=== PATIENT | female | born 1965 | race Caucasian/White ===

== ENCOUNTER 2020-08-30 13:46 | Outpatient (RCR) | payer SELFPAY ==
[2020-08-30 10:17] VITALS: BP 127/72; PULSE 88; TEMP 36.2
--- NOTE | 2020-08-30 11:54 | PCM.WC.HP ---
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 She cleaned it and was taking care of it but it seemed to be getting worse with redness and swelling went to urgent care they refused to see her and sent her to the emergency room. The emergency room doctor wanted to admit her but she has no insurance he put her on Bactrim and sent her home. Patient has been soaking with Dakin's 3 times a day and applying Neosporin and dressings over top. Progress of Wound: Swollen the wound itself is more superficial but full of slough webbing between her fourth and fifth toe is macerated. Today three quarters of the foot is red and warm to touch Will start her on metronidazole repeat cultures and continue the Bactrim DS till we get the culture results back we will get patient off work for a couple of days until . Patient is to wear Chralie wrap and elevate as much as possible ROS Constitutional Constitutional: Reports systems reviewed and no addt'l complaints, except as documented Eyes Eyes: Reports systems reviewed and no addt'l complaints, except as documented ENT HEENT: Reports systems reviewed and no addt'l complaints, except as documented Cardiovascular Cardiovascular: Reports systems reviewed and no addt'l complaints, except as documented Respiratory/Chest Respiratory/Chest: Reports systems reviewed and no addt'l complaints, except as documented Gastrointestinal Gastrointestinal: Reports systems reviewed and no addt'l complaints, except as documented Genitourinary Genitourinary: Reports systems reviewed and no addt'l complaints, except as documented Musculoskeletal Musculoskeletal: Reports systems reviewed and no addt'l complaints, except as documented Integumentary Integumentary: Reports systems reviewed and no addt'l complaints, except as documented and as per HPI Neurologic Neurologic: Reports systems reviewed and no addt'l complaints, except as documented Psychiatric Psychiatric: Reports systems reviewed and no addt'l complaints, except as documented Endocrine Endocrinology: Reports systems reviewed and no addt'l complaints, except as documented Hematologic/Lymphatic Hematologic/Lymphatic: Reports systems reviewed and no addt'l complaints, except as documented Allergic/Immunologic Allergic/Immunologic: Reports systems reviewed and no addt'l complaints, except as documented Vital Signs Vital Signs Vital Signs: 08/30/20 10:17 Temperature 97.1 F L Temperature Source Temporal Pulse Rate 88 Blood Pressure 127/72 H Blood Pressure Mean 90 Blood Pressure Source Monitor Blood Pressure Position Semi-Fowlers Blood Pressure Location Right Arm Physical Exam Const oriented x3 General Appearance: cooperative Exam Limitations: no limitations HEENT normocephalic Head and Scalp: normal to inspection Face and Sinus: normal facial exam Nose: external nose normal General Ear: hearing grossly impaired External Ear: external ears normal Mouth: oral and palatal mucosa normal Eyes PERRL General Eye: normal appearance of both eyes Neck full ROM General: normal visual inspection Resp normal respiratory effort Effort and Inspection: able to speak in complete sentences Auscultation: clear to auscultation bilaterally Cardio regular rate and regular rhythm Palpation: normal PMI Rate: regular rate Rhythm: regular rhythm GI Auscultation: normoactive bowel sounds Palpation: soft and no hepatosplenomegaly external exam normal Back/Spine Cervical Spine: cervical ROM normal Thoracic Spine / Upper Back: normal to inspection Lumbar Spine / Lower Back: normal to inspection Extremity normal to inspection General Extremity: normal exam except as noted Skin Rashes: rashes noted Wounds: wounds noted Neuro oriented x3 Psych Appearance: grossly normal Speech: normal speech Thought Content: normal thought content Judgement: judgement good Debridement Note Debridement Note Post-Debridement Measurements and Additional Note: Post-Debridement Measurements/Treatment - Nurse 1 - General Ulcer Assessment Start: 08/30/20 10:17 Freq: Status: Active Protocol: [email or web address].[email or web address] Activity Type Activity Date Activity User E-Sign Co-Sign Detail Recorded Client Recorded Date Recorded By Document 08/30/20 10:17 YUN [id number] 08/30/20 10:38 YUN 08/30/20 10:17 - Today's Visit Information Type of service Initial Visit Arrival Mode Ambulatory Patient Identification Verified (Name & Yes ) Vital Signs Temperature (97.8 F-99.1 F) 97.1 F L Temperature Source Temporal Pulse Rate (60-100) 88 Pulse Location Monitor Blood Pressure (90/60-120/80) 127/72 H Blood Pressure Mean 90 Source Monitor Position Semi-Fowlers Blood Pressure Location Right Arm History Since Last Visit- (Skip if this is Patient's initial visit) Have you changed medications since your No last visit? Any new allergies or adverse reactions No Had a fall/change in ADL's that may No increase risk of falls Signs or symptoms of abuse and/or No neglect since last visit Have you been in the hospital since your No last visit? Has dressing in place as prescribed No Has compression in place as prescribed N/A Has offloadiing in place as prescribed N/A Experienced any changes in pain level or No management Left Footwear Regular Shoe Right Footwear Regular Shoe Pain Scale: 0-10 Numeric Is Patient Pain Free? Yes - Nurse 1 - General Ulcer Measurement Start: 08/30/20 10:17 Freq: Status: Active Protocol: Activity Type Activity Date Activity User E-Sign Co-Sign Detail Recorded Client Recorded Date Recorded By Document 08/30/20 10:17 KR [id number] 08/30/20 10:38 KR 08/30/20 10:17 Wound Center Nurse 1 #1 Left Anterior foot -Current Size (cm) - Length 1.7 -Current Size (cm) - Width 1.5 -Current Size (cm) - Depth 0.2 -Total Square Cm 2.55 -Exudate Amt Large -Exudate Type Yellow/Green -Wound Margin Distinct, Outline Attached -Granulation Amt Small (1-33%) -Granulation Quality Red -Necrosis Amt Large (67-100%) -Necrotic Tissue Type Adherent Slough -Texture (Shweta-wound Skin Appearance) Assessed, Localized Edema ,Scarring -Moisture (Shweta-wound Skin Appearance) Assessed, Maceration -Color (Shweta-wound Skin Appearance) No Abnormality, Assessed -Temperature (Shweta-wound Skin Hot Appearance) -Tenderness on Palpation (Shweta-wound Yes Skin Appearance) -Ulcer Cleansing Rinsed/ Irrigated with Saline -Foul Odor after Cleansing No -Anesthetic Used 4% Lidocaine Solution,5% Lidocaine Gel Right Calf (cm) 45 Right Ankle (cm) 25 Left Calf (cm) 46 Left Ankle (cm) 27 WC - Nurse 2 - General Ulcer CM Notes Start: 08/30/20 10:17 Freq: Status: Active Protocol: Activity Type Activity Date Activity User E-Sign Co-Sign Detail Recorded Client Recorded Date Recorded By Document 08/30/20 11:07 MW [id number] 08/30/20 11:18 MW 08/30/20 11:07 Wound Center Nurse 2 #1 Left Anterior foot -Time 11:08 -Correct Patient Yes -Correct Side, Site, Position Yes -Correct Procedure Yes -Procedure Performed Yes -Type of Procedure Debridement -Clinical Debridement Subcutaneous -Tissue Removed Subcutaneous -Post Debridement (cm) - Length 3.0 -Post Debridement (cm) - Width 2.0 -Post Debridement (cm) - Depth 0.2 -Total Square (Post) (cm) 6.00 -Area of Debridement (cm) - Length 3.0 -Area of Debridement (cm) - Width 2.0 -Total Square (Area) (cm) 6.00 -Tunneling No -Undermining/Tunneling No -Circular Undermining No -Wound/Ulcer Outcome Not Healed -Ulcer Cleansing Rinsed/ Irrigated with Saline -Foul Odor after Cleansing No -Bioengineered Tissue No -Bleeding Controlled with Pressure -Offloading No -Treatment Response Procedure Tolerated Well -Debridement - Subq, 1st 20sq cm Yes Pain Scale: 0-10 Numeric Is Patient Pain Free? Yes - Nurse 3 - General Ulcer D/C NN Start: 08/30/20 10:17 Freq: Status: Active Protocol: Activity Type Activity Date Activity User E-Sign Co-Sign Detail Recorded Client Recorded Date Recorded By Document 08/30/20 11:32 [facility] [id number] 08/30/20 11:33 [facility] 08/30/20 11:32 Wound Care Nurse 3 #1 Left Anterior foot -Ulcer Cleansing Rinsed/ Irrigated with Saline -Foul Odor after Cleansing No -Primary Dressing Applied Aquacel AG 4x4, NonAdherent Contact Layer -Primary Dressing Covered/Secured with Dry Gauze & Roll Gauze, Secured with Tape,Other -Other Covering abd -Aquacel AG 4x4 1 Left -Compression Wrap Charlie Wrap Treatment Response Procedure Tolerated Well Pain Scale: 0-10 Numeric Is Patient Pain Free? Yes WC - Visit Discharge Discharge Condition Stable Ambulatory Status Ambulatory Transportation Private Auto Accompanied by matheus Wound debrided: Left dorsal foot wound Type of Debridement: Excisional debridement Anesthesia Used: 5% Lidocaine Gel Depth: Down to and including healthy tissue Percentage of wound debrided: 100 Instrument Used: 3mm curette Tissue Removed: Slough Severity: Limited To Skin Breakdown Amount of bleeding with debridement: Mild Bleeding Controlled with: Pressure Patient tolerated procedure: Patient tolerated procedure well Medical Records Data Attestation: I reviewed the patient's medical records Lab / Micro Data Attestation: I reviewed the patient's lab results. Assessment/Plan Assessment/Plan (1) Open wound of foot: CODE(S): S91.309A - Unspecified open wound, unspecified foot, initial encounter QUALIFIERS: Encounter type: initial encounter Laterality: left Qualified Code(s): S91.302A - Unspecified open wound, left foot, initial encounter PLAN: Wash foot with antibacterial soap apply Aquacel extra moistened Adaptic gauze and Cecilio Dressings will be done every day follow-up in 1 week (2) Cellulitis and abscess of foot, except toes: CODE(S): L03.119 - Cellulitis of unspecified part of limb; L02.619 - Cutaneous abscess of unspecified foot PLAN: Continue antibiotic therapy and will call with results of cultures obtained for aerobic and anaerobes (3) Edema of left lower leg: CODE(S): R60.0 - Localized edema PLAN: Charlie wrap 4 inch to foot and 6 inch to leg to knee every day
== END 2020-09-04 23:59 | disposition home or self-care (01) ==
LOC: WC 13:46
PROVIDERS: Visit Provider Nurse Practitioner
DX: S91.302A Unspecified open wound, left foot, initial encounter (principal); L03.119 Cellulitis of unspecified part of limb; R60.0 Localized edema; L02.619 Cutaneous abscess of unspecified foot
CPT/HCPCS: 11042; 87070; 87075; 87205; 99203; G0463

== ENCOUNTER 2020-09-13 08:45 | Outpatient (RCR) | payer SELFPAY ==
[2020-09-05 00:46] VITALS: BP 127/72; PULSE 88; TEMP 36.2
[2020-09-06 08:28] VITALS: BP 140/81; PULSE 83; RESP 18; TEMP 36.4
--- NOTE | 2020-09-06 11:25 | PN.PCM_ITS ---
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 She cleaned it and was taking care of it but it seemed to be getting worse with redness and swelling went to urgent care they refused to see her and sent her to the emergency room. The emergency room doctor wanted to admit her but she has no insurance he put her on Bactrim and sent her home. Patient has been soaking with Dakin's 3 times a day and applying Neosporin and dressings over top. Subjective Subjective She states its better and less painful.She states had a terrible reaction to the Flagyl and broke out in spots that itched all over her josé manuel but her face and breasts.Told to stop immediately. Objective Data Objective Data The wound itself is smaller less depth and less redness and swelling of he foot only the little toe is effected the most. Vital Signs: Vital Signs Temp Pulse Resp BP 97.6 F L 83 18 140/81 H 09/06/20 08:28 09/06/20 08:28 09/06/20 08:28 09/06/20 08:28 Lab / Micro Data Micro: neg on the cultures Physical Exam Const oriented x3 General Appearance: cooperative Exam Limitations: no limitations Resp normal respiratory effort and normal air movement Cardio regular rate and regular rhythm Extremity normal to inspection General Extremity: normal exam except as noted Skin no rashes or lesions noted Neuro oriented x3 Debridement Note Debridement Note Post-Debridement Measurements and Additional Note: Post-Debridement Measurements/Treatment - Nurse 1 - General Ulcer Assessment Start: 09/06/20 08:25 Freq: Status: Active Protocol: WC.LOWEXT Activity Type Activity Date Activity User E-Sign Co-Sign Detail Recorded Client Recorded Date Recorded By Document 09/06/20 08:28 ERIS [id number] 09/06/20 08:36 PL 09/06/20 08:28 - Today's Visit Information Type of service 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 Any new allergies or adverse reactions No Had a fall/change in ADL's that may No increase risk of falls Signs or symptoms of abuse and/or No neglect since last visit Have you been in the hospital since your No last visit? Has dressing in place as prescribed Yes Has compression in place as prescribed N/A Has offloadiing in place as prescribed N/A Experienced any changes in pain level or No management Pain Scale: 0-10 Numeric Is Patient Pain Free? No WC - Nurse 1 - General Ulcer Measurement Start: 09/06/20 08:25 Freq: Status: Active Protocol: Activity Type Activity Date Activity User E-Sign Co-Sign Detail Recorded Client Recorded Date Recorded By Document 09/06/20 08:28 PL [id number] 09/06/20 08:36 PL 09/06/20 08:28 Wound Center Nurse 1 #1 Left Anterior foot -Combined with other wound No -Current Size (cm) - Length 1.5 -Current Size (cm) - Width 1.0 -Current Size (cm) - Depth 0.2 -Total Square Cm 1.50 -Photo Taken No -Epithelialization None Present -Tunneling No -Undermining/Tunneling No -Circular Undermining No -Exudate Amt Medium -Exudate Type Serosanguineous -Granulation Amt Medium (34-66%) -Granulation Quality [place] -Slough/Fibrin Yes -Necrosis Amt Medium (34-66%) -Necrotic Tissue Type Adherent Slough -Ulcer Cleansing Rinsed/ Irrigated with Saline -Foul Odor after Cleansing No -Anesthetic Used 5% Lidocaine Gel WC - Nurse 2 - General Ulcer CM Notes Start: 09/06/20 08:25 Freq: Status: Active Protocol: Activity Type Activity Date Activity User E-Sign Co-Sign Detail Recorded Client Recorded Date Recorded By Document 09/06/20 09:10 MW [id number] 09/06/20 09:13 MW 09/06/20 09:10 Wound Center Nurse 2 -Time 09:10 -Correct Patient Yes -Correct Side, Site, Position Yes -Correct Procedure Yes -Procedure Performed Yes -Type of Procedure Debridement -Clinical Debridement Subcutaneous -Tissue Removed Subcutaneous -Post Debridement (cm) - Length 1.5 -Post Debridement (cm) - Width 0.8 -Post Debridement (cm) - Depth 0.2 -Total Square (Post) (cm) 1.20 -Area of Debridement (cm) - Length 1.5 -Area of Debridement (cm) - Width 0.8 -Total Square (Area) (cm) 1.20 -Tunneling No -Undermining/Tunneling No -Circular Undermining No -Wound/Ulcer Outcome Not Healed -Ulcer Cleansing Rinsed/ Irrigated with Saline -Foul Odor after Cleansing No -Bioengineered Tissue No -Bleeding Controlled with Pressure -Offloading No -Treatment Response Procedure Tolerated Well -Debridement - Subq, 1st 20sq cm Yes Pain Scale: 0-10 Numeric Is Patient Pain Free? Yes - Nurse 3 - General Ulcer D/C NN Start: 09/06/20 08:25 Freq: Status: Active Protocol: Activity Type Activity Date Activity User E-Sign Co-Sign Detail Recorded Client Recorded Date Recorded By Document 09/06/20 10:18 ERIS [id number] 09/06/20 10:19 ERIS 09/06/20 10:18 Wound Care Nurse 3 #1 Left Anterior foot -Ulcer Cleansing Rinsed/ Irrigated with Saline -Foul Odor after Cleansing No -Primary Dressing Applied Promogran -Primary Dressing Covered/Secured with Dry Gauze & Roll Gauze, Secured with Tape -Promogran 1 Pain Scale: 0-10 Numeric Is Patient Pain Free? Yes - Visit Discharge Discharge Condition Stable Ambulatory Status Ambulatory Clinical Summary of Care Provided Yes Wound debrided: L dorsal foot near L little toe Laterality: Left Type of Debridement: Excisional debridement Anesthesia Used: 5% Lidocaine Gel Depth: Down to and including healthy tissue Percentage of wound debrided: 100 Instrument Used: 5mm curette Tissue Removed: fibrin devitalized tissue Severity: Fat Layer Exposed Amount of bleeding with debridement: Mild Bleeding Controlled with: Pressure Patient tolerated procedure: Patient tolerated procedure well Assessment/Plan Assessment/Plan (1) Edema of left lower leg: CODE(S): R60.0 - Localized edema PLAN: continue the salvatore wrap to the foot and leg (2) Cellulitis and abscess of foot, except toes: CODE(S): L03.119 - Cellulitis of unspecified part of limb; L02.619 - Cutaneous abscess of unspecified foot PLAN: change dressing change to Promogran and adaptic then gauze and salvatore wrap every day elevate as much as possible (3) Open wound of foot: CODE(S): S91.309A - Unspecified open wound, unspecified foot, initial encounter QUALIFIERS: Encounter type: initial encounter Laterality: left Qualified Code(s): S91.302A - Unspecified open wound, left foot, initial encounter PLAN: same as above
[2020-09-13 08:48] VITALS: BP 151/81; PULSE 79; TEMP 36.9
--- NOTE | 2020-09-13 12:31 | PCM.WC.PN ---
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 She cleaned it and was taking care of it but it seemed to be getting worse with redness and swelling went to urgent care they refused to see her and sent her to the emergency room. The emergency room doctor wanted to admit her but she has no insurance he put her on Bactrim and sent her home. Patient has been soaking with Dakin's 3 times a day and applying Neosporin and dressings over top. Subjective Subjective wound looks good Objective Data Objective Data The wound is practically healed just a area smaller than an eraser head of an area superficial She has a outline of redness wheare the salvatore wrap is on her L leg . Suggested a cotton slip under the salvatore to stop the reaction Vital Signs: Vital Signs Temp Pulse Resp BP 98.4 F 79 18 151/81 H 09/13/20 08:48 09/13/20 08:48 09/06/20 08:28 09/13/20 08:48 Physical Exam Const oriented x3 General Appearance: cooperative Exam Limitations: no limitations HEENT normocephalic Head and Scalp: normal to inspection Face and Sinus: normal facial exam Nose: external nose normal General Ear: hearing grossly impaired External Ear: external ears normal Mouth: oral and palatal mucosa normal Eyes PERRL General Eye: normal appearance of both eyes Neck full ROM General: normal visual inspection Resp normal respiratory effort Effort and Inspection: able to speak in complete sentences Auscultation: clear to auscultation bilaterally Cardio regular rate and regular rhythm Palpation: normal PMI Rate: regular rate Rhythm: regular rhythm GI Auscultation: normoactive bowel sounds Palpation: soft and no hepatosplenomegaly external exam normal Back/Spine Cervical Spine: cervical ROM normal Thoracic Spine / Upper Back: normal to inspection Lumbar Spine / Lower Back: normal to inspection Extremity normal to inspection General Extremity: normal exam except as noted Skin no rashes or lesions noted Neuro oriented x3 Psych Appearance: grossly normal Speech: normal speech Thought Content: normal thought content Judgement: judgement good Debridement Note Debridement Note Post-Debridement Measurements and Additional Note: Post-Debridement Measurements/Treatment WC - Nurse 1 - General Ulcer Assessment Start: 09/06/20 08:25 Freq: Status: Active Protocol: KATHERINE Activity Type Activity Date Activity User E-Sign Co-Sign Detail Recorded Client Recorded Date Recorded By Document 09/06/20 08:28 PL [id number] 09/06/20 08:36 PL Document 09/13/20 08:48 KR [id number] 09/13/20 08:51 KR 09/06/20 09/13/20 08:28 08:48 - Today's Visit Information Type of service Follow-up Visit Follow-up Visit (Physician/HOG TRADER (Physician/HOG TRADER ) ) Arrival Mode Ambulatory Ambulatory Transfer Assistance None Patient Identification Verified (Name & Yes Yes ) Patient Requires Transmission-Based No Precautions Vital Signs Temperature (97.8 F-99.1 F) 97.6 F L 98.4 F Temperature Source Temporal Oral Pulse Rate (60-100) 83 79 Pulse Location Monitor Respiratory Rate (12-18) 18 Blood Pressure (90/60-120/80) 140/81 H 151/81 H Blood Pressure Mean (mm Hg) 100 104 Source Monitor Position Semi-Fowlers Blood Pressure Location Left Arm History Since Last Visit- (Skip if this is Patient's initial visit) Have you changed medications since your No No last visit? Any new allergies or adverse reactions No No Had a fall/change in ADL's that may No No increase risk of falls Signs or symptoms of abuse and/or No No neglect since last visit Have you been in the hospital since your No No last visit? Has dressing in place as prescribed Yes Yes Has compression in place as prescribed N/A N/A Has offloadiing in place as prescribed N/A N/A Experienced any changes in pain level or No No management Pain Scale: 0-10 Numeric Is Patient Pain Free? No Yes - Nurse 1 - General Ulcer Measurement Start: 09/06/20 08:25 Freq: Status: Active Protocol: Activity Type Activity Date Activity User E-Sign Co-Sign Detail Recorded Client Recorded Date Recorded By Document 09/06/20 08:28 PL [id number] 09/06/20 08:36 PL Document 09/13/20 08:48 KR [id number] 09/13/20 08:51 KR 09/06/20 09/13/20 08:28 08:48 Wound Center Nurse 1 #1 Left Anterior foot -Combined with other wound No -Current Size (cm) - Length 1.5 0.6 -Current Size (cm) - Width 1.0 0.4 -Current Size (cm) - Depth 0.2 0.1 -Total Square Cm 1.50 0.24 -Photo Taken No -Epithelialization None Present -Tunneling No -Undermining/Tunneling No -Circular Undermining No -Exudate Amt Medium None Present -Exudate Type Serosanguineous -Wound Margin Distinct, Outline Attached -Granulation Amt Medium (34-66%) Small (1-33%) -Granulation Quality [place] -Slough/Fibrin Yes -Necrosis Amt Medium (34-66%) Small (1-33%) -Necrotic Tissue Type Adherent Slough Adherent Slough -Texture (Shweta-wound Skin Appearance) Assessed, Scarring -Moisture (Shweta-wound Skin Appearance) No Abnormality, Assessed -Color (Shweta-wound Skin Appearance) No Abnormality, Assessed -Temperature (Shweta-wound Skin No Abnormality Appearance) (Pt Warm) -Tenderness on Palpation (Shweta-wound No Skin Appearance) -Ulcer Cleansing Rinsed/ Rinsed/ Irrigated with Irrigated with Saline Saline -Foul Odor after Cleansing No No -Anesthetic Used 5% Lidocaine 5% Lidocaine Gel Gel WC - Nurse 2 - General Ulcer CM Notes Start: 09/06/20 08:25 Freq: Status: Active Protocol: Activity Type Activity Date Activity User E-Sign Co-Sign Detail Recorded Client Recorded Date Recorded By Document 09/06/20 09:10 MW [id number] 09/06/20 09:13 MW Document 09/13/20 08:55 MW [id number] 09/13/20 08:58 MW 09/06/20 09/13/20 09:10 08:55 Wound Center Nurse 2 #1 Left Anterior foot -Time 09:10 08:55 -Correct Patient Yes Yes -Correct Side, Site, Position Yes Yes -Correct Procedure Yes Yes -Procedure Performed Yes Yes -Type of Procedure Debridement Debridement -Clinical Debridement Subcutaneous Subcutaneous -Tissue Removed Subcutaneous Subcutaneous -Post Debridement (cm) - Length 1.5 0.3 -Post Debridement (cm) - Width 0.8 0.2 -Post Debridement (cm) - Depth 0.2 0.1 -Total Square (Post) (cm) 1.20 0.06 -Area of Debridement (cm) - Length 1.5 0.3 -Area of Debridement (cm) - Width 0.8 0.2 -Total Square (Area) (cm) 1.20 0.06 -Tunneling No No -Undermining/Tunneling No No -Circular Undermining No No -Wound/Ulcer Outcome Not Healed Not Healed -Ulcer Cleansing Rinsed/ Rinsed/ Irrigated with Irrigated with Saline Saline -Foul Odor after Cleansing No No -Bioengineered Tissue No No -Bleeding Controlled with Pressure Pressure -Offloading No No -Treatment Response Procedure Procedure Tolerated Well Tolerated Well -Debridement - Subq, 1st 20sq cm Yes Yes Pain Scale: 0-10 Numeric Is Patient Pain Free? Yes Yes - Nurse 3 - General Ulcer D/C NN Start: 09/06/20 08:25 Freq: Status: Active Protocol: Activity Type Activity Date Activity User E-Sign Co-Sign Detail Recorded Client Recorded Date Recorded By Document 09/06/20 10:18 PL [id number] 09/06/20 10:19 PL Document 09/13/20 09:13 KR [id number] 09/13/20 09:14 KR 09/06/20 09/13/20 10:18 09:13 Wound Care Nurse 3 #1 Left Anterior foot -Ulcer Cleansing Rinsed/ Irrigated with Saline -Foul Odor after Cleansing No -Primary Dressing Applied Promogran NonAdherent Contact Layer, Promogran -Primary Dressing Covered/Secured with Dry Gauze & Dry Gauze,Dry Roll Gauze, Gauze & Roll Secured with Gauze,Secured Tape with Tape -Promogran 1 1 Pain Scale: 0-10 Numeric Is Patient Pain Free? Yes Yes - Visit Discharge Discharge Condition Stable Ambulatory Status Ambulatory Clinical Summary of Care Provided Yes Wound debrided: L dorsal foot Laterality: Left Type of Debridement: Excisional debridement Anesthesia Used: 5% Lidocaine Gel Depth: Down to and including healthy tissue Percentage of wound debrided: 100 Instrument Used: 3mm curette Tissue Removed: fibrin Severity: Limited To Skin Breakdown Amount of bleeding with debridement: Mild Bleeding Controlled with: Pressure Patient tolerated procedure: Patient tolerated procedure well Assessment/Plan Assessment/Plan (1) Edema of left lower leg: CODE(S): R60.0 - Localized edema PLAN: wear and coton lineing over the leg then the salvatore wrap may be having a reaction the the latex and the heat (2) Open wound of foot: CODE(S): S91.309A - Unspecified open wound, unspecified foot, initial encounter QUALIFIERS: Encounter type: initial encounter Laterality: left Qualified Code(s): S91.302A - Unspecified open wound, left foot, initial encounter PLAN: Continue the Promogran to the L dorsal foot moisten adaptic and cover with gauze dressing Follow up 1 week
== END 2020-10-04 23:59 ==
LOC: WC 08:45
PROVIDERS: Visit Provider Nurse Practitioner
DX: R60.0 Localized edema (principal); S91.309A Unspecified open wound, unspecified foot, initial encounter; S91.302A Unspecified open wound, left foot, initial encounter; L02.619 Cutaneous abscess of unspecified foot
CPT/HCPCS: 11042